=== PATIENT | female | born 1955 | race Caucasian/White ===

== ENCOUNTER 2024-01-05 08:53 | Outpatient (REF) | payer MEDICARE, SELFPAY ==
--- NOTE | ~2024-01-05 | XR_ITS ---
EXAMINATION: XR LUMBOSACRAL SPINE WITH OBLIQUES CLINICAL INFORMATION: Scoliosis unspecified. COMPARISON: None available. TECHNIQUE: 4 views of the lumbar spine. FINDINGS: Dextroscoliosis of the thoracolumbar spine. The bones are diffusely demineralized. Moderate degenerative changes in the bilateral sacroiliac joints. Facet arthritis in the [id number] lumbar spine. Degenerative changes with loss of disc space height at L2-L3. Severe compression deformity of L3 vertebral body of indeterminant age. Advanced degenerative changes with abundant hypertrophic change and loss of disc space height at L3-L4. Grade 1 anterolisthesis of L5 on S1 with marked loss of disc space height. XR/XR lumbar spine 4V min IMPRESSION: 1. Severe compression deformity of L3 vertebral body of indeterminant age. 2. Advanced degenerative changes with abundant hypertrophic change and loss of disc space height at L3-L4. 3. Grade 1 anterolisthesis of L5 on S1 with marked loss of disc space height. 4. 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
== END 2024-01-05 08:54 | disposition home or self-care (01) ==
LOC: HO.HOSX 08:53
PROVIDERS: PCP Family Medicine; Visit Provider Neurological Surgery
DX: M41.9 Scoliosis, unspecified (principal); M48.07 Spinal stenosis, lumbosacral region
CPT/HCPCS: 72110; 99202

== ENCOUNTER 2024-01-05 08:53 | Outpatient (AMB) | payer MEDICARE, SELFPAY ==
--- NOTE | 2024-01-05 09:16 | A.SPINEOV_ITS ---
Intake Visit Reasons: low back pain Intake Note: Ms. Pugh is here today c/o right sided thigh pain that radiates down to the foot. 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 HPI: This 68-year-old female is known with scoliosis. She underwent a fusion when she was 15 years old. She states that she always has midthoracic pain with rotation of the spine. This is not a complaint why she is visiting me today. She was sitting with the daughter in the emergency room for prolonged period of time that resulted in a right-sided back pain. 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 The pain is in the right side of her back and radiates to the front of her thigh and posterior side. She had an SI joint injection done by Dr. Bhatti which helped with the pain in the front of her thigh. Sitting and bending make the pain worse. In the afternoon she usually takes an ibuprofen and by the end of the day she is unable to stand due to the pain. She tried a an SI joint belt which gave some relief but aggravated the left side. Physical therapy makes the pain worse. She scheduled to undergo an L5-S1 epidural steroid injection PMH: Hypothyroidism, spinal fusion, appendectomy, foot surgery Medications: Cymbalta, levothyroxine, vitamin-D Allergies: Penicillin, cephalosporins Social history: Psychologist. Nonsmoker Physical Exam: Pleasant female. No pain on palpation. Straight leg raise produces pain in her posterior thigh. SI provocative tests are negative. No neurological deficits Radiological Studies: MRI done at [facility] on 11/28/2023 shows a lumbar degenerative scoliosis and a right L5 foraminal stenosis due to a unilateral collapse of the L5-S1 disc space. In addition there is multilevel degenerative disc disease . An x-ray of the lumbar spine shows again the lumbar degenerative scoliosis with the unilateral collapse of the L5-S1 disc space. It also shows an auto fusion at L3-L4 and a previous thoracic fusion. Impression/Plan: This patient is suffering from right-sided back pain that goes into her leg. I think it is related to the right L5 neuroforaminal stenosis that is caused by the asymmetrical collapse of the L5-S1 disc space. I agree with the epidural steroid injection both being therapeutic and diagnostic. The patient will return to my office when the injections are no longer helpful. I proposed to do a right L5 foraminotomy in attempt to avoid a fusion. Thank you for allowing me to participate in your patients care. total time spent was 50 minutes in counseling ,coordination of plan, personal review of imaging, surgical decision making and subsequent plan Alex Hernandez MD, PhD Sp[facility] Trained Neurosurgeon Director, [facility] Orders: Orders XR lumbar spine 4V min Today M41.9 - Scoliosis, unspecified Coding Level of Care Code New Pt Level 4 (31692) Diagnoses Neuroforaminal stenosis of lumbosacral spine M48.07
== END 2024-01-05 10:20 | disposition home or self-care (01) ==
PROVIDERS: PCP Family Medicine; Referring Provider Family Medicine; Visit Provider Neurological Surgery
DX: M48.07 Spinal stenosis, lumbosacral region (principal)
CPT/HCPCS: 99204